=== PATIENT | female | born 1955 | race Hispanic/Latino ===

== ENCOUNTER 2017-10-13 22:38 | Emergency (ER) | payer BC ==
[2017-10-13 22:49] VITALS: TEMP 97.9
[2017-10-13] MEDS ORDERED: Atrop/Hyos/Scop/PhenoB Elixir PO STA (23:09)
[2017-10-13 23:16] LABS: BASO % 0.5 % (0.0-2.0); EOS % 0.4 % (0.0-4.0); HEMATOCRIT 42.7 % (34.0-47.0); LYMPH # 1.2 K/uL (1.0-4.3); LYMPH % 13.2 % (20.0-40.0); MEAN CELL VOLUME 88.6 fl (81.0-99.0); MEAN CORPUSCULAR HEMOGLOBIN 30.4 pg (27.0-31.0); MEAN CORPUSCULAR HGB CONC 34.4 g/dL (33.0-37.0); MEAN PLATELET VOLUME 8.8 fl (7.2-11.7); MONO # 0.1 K/uL (0.0-0.8); MONO % 0.8 % (0.0-10.0); NEUT # 7.9 K/uL (1.8-7.0); NEUT % 85.1 % (50.0-75.0); NRBC % 0.1 % (0.0-0.0); RED CELL DISTRIBUTION WIDTH 12.6 % (11.5-14.5); WHITE BLOOD COUNT 9.3 K/uL (4.8-10.8)
[2017-10-13 23:24] LABS: ALB/GLOB RATIO 1.5 (1.0-2.1); ALKALINE PHOSPHATASE 57 U/L (38-126); ALT/SGPT 36 U/L (9-52); AST/SGOT 35 U/L (14-36); BILIRUBIN,TOTAL 0.7 mg/dl (0.2-1.3); BLOOD UREA NITROGEN 21 mg/dl (7-17); CALCIUM 9.3 mg/dL (8.4-10.2); CARBON DIOXIDE 25 mmol/L (22-30); GFR AFRICAN-AMERICAN > 60; GLUCOSE,RANDOM 98 mg/dL (65-105); POTASSIUM 4.1 MMOL/L (3.6-5.0); SODIUM 143 mmol/l (132-148); TOTAL PROTEIN 7.6 G/DL (6.3-8.2)
[2017-10-13 23:27] LABS: PARTIAL THROMBOPLASTIN TIME 19.2 Seconds (25.6-37.1)
[2017-10-13] MEDS ORDERED: Sodium Chloride 0.9% 0 ML IV ONE (23:42)
[2017-10-13] MEDS ORDERED: Iohexol 300 100 ML IJ ONE (23:42)
--- NOTE | 2017-10-14 00:29 | ED PDOC ---
HPI: Abdomen Time Seen by Provider: 10/13/17 22:51 Chief Complaint (Nursing): Chest Pain Chief Complaint (Provider): Abdominal Pain History Per: Patient History/Exam Limitations: no limitations Onset/Duration Of Symptoms: Hrs (1 hour prior to arrival) Associated Symptoms: denies: Nausea, Vomiting Additional Complaint(s): Patient is a 62 y/o female with no past medical history who presents to the ED complaining of acute abdominal pain that radiates to her back since 1 hour prior to arrival. Patient reports she had a colonoscopy at 11:00 this morning ( 10/13/2017), and admits to drinking 2 sodas earlier. She is belching but denies any nausea or vomiting. PMD Dr David Cardiology Dr Ramirez Past Medical History Reviewed: Historical Data, Nursing Documentation, Vital Signs Vital Signs: Last Vital Signs Temp 97.9 F 10/13/17 22:46 Pulse 69 10/13/17 22:46 Resp 16 10/13/17 22:46 BP 171/76 H 10/13/17 22:46 Pulse Ox 100 10/14/17 00:42 - Medical History PMH: Back Problems - Surgical History Surgical History: No Surg Hx - Family History Family History: States: No Known Family Hx - Social History Current smoker - smoking cessation education provided: No Ex-Smoker (has not smoked in the last 12 months): No Alcohol: Social Drugs: Denies - Home Medications Home Medications: Ambulatory Orders Medication Instructions Recorded Atropine/Hyoscyamine [] 1 - 2 tab PO Q6 PRN #12 tab 10/14/17 - Allergies Allergies/Adverse Reactions: Allergies Allergy/AdvReac Type Severity Reaction Status Date / Time No Known Allergies Allergy Verified 10/13/17 22:45 Review of Systems ROS Statement: Except As Marked, All Systems Reviewed And Found Negative Gastrointestinal: Positive for: Abdominal Pain. Negative for: Nausea, Vomiting Physical Exam - Reviewed Nursing Documentation Reviewed: Yes Vital Signs Reviewed: Yes - Physical Exam Appears: Positive for: In Acute Distress (mild painful distress) Head Exam: Positive for: ATRAUMATIC, NORMOCEPHALIC Skin: Positive for: Normal Color, Warm, Dry Eye Exam: Positive for: Normal appearance, EOMI, PERRL Neck: Positive for: Normal, Painless ROM, Supple Cardiovascular/Chest: Positive for: Regular Rate, Rhythm. Negative for: Murmur Respiratory: Positive for: Normal Breath Sounds. Negative for: Respiratory Distress Gastrointestinal/Abdominal: Positive for: Soft, Tenderness (epigastric). Negative for: Guarding, Rebound Back: Positive for: Normal Inspection. Negative for: L CVA Tenderness, R CVA Tenderness, Vertebral Tenderness Extremity: Positive for: Normal ROM. Negative for: Pedal Edema, Deformity Neurologic/Psych: Positive for: Alert, Oriented (x3). Negative for: Motor/ Sensory Deficits - Laboratory Results Result Diagrams: 10/13/17 23:06 10/13/17 23:06 - ECG O2 Sat by Pulse Oximetry: 100 (RA) Pulse Ox Interpretation: Normal Medical Decision Making Medical Decision Making: Time: 23:02 Initial Impression: Initial Plan: --CT abdomen/pelvis IV W/O Contrast --EKG --Labs --PTT/PT --Chest X-Ray -- 5 ml PO --Urinalysis 00:04 --Lipase -Patient signed out by me to Donnie Carreon, pending CT abdomen/pelvis Scribe Attestation: Documented by Gabriel Finnegan, acting as a scribe for Nicky Antonio MD Provider Scribe Attestation: All medical record entries made by the Scribe were at my direction and personally dictated by me. I have reviewed the chart and agree that the record accurately reflects my personal performance of the history, physical exam, medical decision making, and the department course for this patient. I have also personally directed, reviewed, and agree with the discharge instructions and disposition. Disposition - Clinical Impression Clinical Impression: Abdominal pain - Patient ED Disposition Is Patient to be Admitted: Transfer of Care - Disposition Disposition: Transfer of Care Disposition Time: 00:04 Prescriptions: Atropine/Hyoscyamine [] 1 - 2 tab PO Q6 PRN #12 tab PRN Reason: abdominal pain/bloating Instructions: Gas and Bloating (ED), Abdominal Pain (ED) Forms: [employer] (Solomon Islander) Patient Signed Over To: Donnie Carreon
--- NOTE | 2017-10-14 00:37 | ED PDOC ---
HPI: Chest Pain Time Seen by Provider: 10/13/17 22:51 Chief Complaint (Nursing): Chest Pain Chief Complaint (Provider): Abdominal Pain History Per: Patient History/Exam Limitations: no limitations Onset/Duration Of Symptoms: Hrs (1 hour [facility]) Associated Symptoms: denies: Nausea Additional Complaint(s): Patient is a 62 y/o female with no past medical history who presents to the ED complaining of acute abdominal pain that radiates to her back since 1 hour prior to arrival. Patient reports she had a colonoscopy at 11:00 this morning ( 10/13/2017), and admits to drinking 2 sodas earlier. She is belching but denies any nausea or vomiting. PMD Dr David Cardiology Dr Ramirez Past Medical History Reviewed: Historical Data, Nursing Documentation, Vital Signs Vital Signs: Last Vital Signs Temp 97.9 F 10/14/17 01:01 Pulse 82 10/14/17 01:01 Resp 18 10/14/17 01:01 BP 156/82 H 10/14/17 01:01 Pulse Ox 100 10/14/17 03:17 - Medical History PMH: Back Problems - Surgical History Surgical History: No Surg Hx - Family History Family History: States: No Known Family Hx - Social History Current smoker - smoking cessation education provided: No Ex-Smoker (has not smoked in the last 12 months): No Alcohol: Social Drugs: Denies - Home Medications Home Medications: Ambulatory Orders Medication Instructions Recorded Atropine/Hyoscyamine [] 1 - 2 tab PO Q6 PRN #12 tab 10/14/17 - Allergies Allergies/Adverse Reactions: Allergies Allergy/AdvReac Type Severity Reaction Status Date / Time No Known Allergies Allergy Verified 10/13/17 22:45 Review of Systems ROS Statement: Except As Marked, All Systems Reviewed And Found Negative Gastrointestinal: Positive for: Abdominal Pain. Negative for: Nausea, Vomiting Physical Exam - Reviewed Nursing Documentation Reviewed: Yes Vital Signs Reviewed: Yes - Physical Exam Appears: Positive for: In Acute Distress (Mild painful distress) Head Exam: Positive for: ATRAUMATIC, NORMOCEPHALIC Skin: Positive for: Normal Color, Warm, Dry Eye Exam: Positive for: Normal appearance, EOMI, PERRL Neck: Positive for: Normal, Painless ROM, Supple Cardiovascular/Chest: Positive for: Regular Rate, Rhythm. Negative for: Murmur Respiratory: Positive for: Normal Breath Sounds. Negative for: Respiratory Distress Gastrointestinal/Abdominal: Positive for: Soft, Tenderness (epigastric). Negative for: Guarding, Rebound Back: Positive for: Normal Inspection. Negative for: L CVA Tenderness, R CVA Tenderness, Vertebral Tenderness Extremity: Positive for: Normal ROM. Negative for: Pedal Edema, Deformity Neurologic/Psych: Positive for: Alert, Oriented (x3). Negative for: Motor/ Sensory Deficits - Laboratory Results Result Diagrams: 10/13/17 23:06 10/13/17 23:06 - ECG O2 Sat by Pulse Oximetry: 100 (RA) Pulse Ox Interpretation: Normal Medical Decision Making Medical Decision Making: Time: 23:02 Initial Impression: Initial Plan: --CT abdomen/pelvis IV W/O Contrast --EKG --Labs --PTT/PT --Chest X-Ray -- 5 ml PO --Urinalysis 00:04 --Lipase -Patient signed out by me to Donnie Carreon, pending CT abdomen/pelvis Scribe Attestation: Documented by Gabriel Finnegan, acting as a scribe for Nicky Antonio MD Provider Scribe Attestation: All medical record entries made by the Scribe were at my direction and personally dictated by me. I have reviewed the chart and agree that the record accurately reflects my personal performance of the history, physical exam, medical decision making, and the department course for this patient. I have also personally directed, reviewed, and agree with the discharge instructions and disposition. Disposition - Clinical Impression Clinical Impression: Abdominal pain - Patient ED Disposition Is Patient to be Admitted: Transfer of Care - Disposition Disposition: Transfer of Care Disposition Time: 00:04 Condition: IMPROVED Prescriptions: Atropine/Hyoscyamine [] 1 - 2 tab PO Q6 PRN #12 tab PRN Reason: abdominal pain/bloating Instructions: Gas and Bloating (ED), Abdominal Pain (ED) Forms: [employer] (Nepalese) Patient Signed Over To: Donnie Carreon
--- NOTE | 2017-10-14 00:44 | ED PDOC ---
- Laboratory Results Result Diagrams: 10/13/17 23:06 10/13/17 23:06 - ECG O2 Sat by Pulse Oximetry: 100 (RA) Pulse Ox Interpretation: Normal Medical Decision Making Medical Decision Makin:04 -Patient signed out to me by Nicky Antonio -Pending CT abdomen/pelvis 00:15 CT abdomen/pelvis results FINDINGS: Lower thorax: The bilateral lung bases are clear. ABDOMEN: Liver: No acute findings Gallbladder and bile ducts: No acute finding. No calcified stones. No intra- extrahepatic biliary ductal dilation. Pancreas: Limited evaluation secondary to the lack of intravenous contrast. Spleen: No acute findings. Adrenals: No acute findings. Kidneys and ureters: No obstructing stones. No hydronephrosis. PELVIS: Bladder: No acute findings. Reproductive: The uterus is nodular in contour, suggesting fibroid disease. Appendix: The appendix is of normal-caliber (series 2, image 55). ABDOMEN and PELVIS: Stomach and bowel: No acute findings. Peritoneum: No acute findings. Lymph nodes: Limited evaluation without intravenous contrast. Vasculature: No aortic aneurysm. Bones: No acute fracture. IMPRESSION: Fibroid uterus. Normal appendix. 00:50 Patient reports marked improvement in symptoms and is stable for discharge Clinical Impression: Abdominal pain Condition: Improved Upon provider evaluation patient is medically stable, and requires no further treatment in the ED at this time. Patient will be discharged with Rx for . Counseling was provided and all questions were answered regarding diagnosis. There is agreement to discharge plan. Return if symptoms persist or worsen. Scribe Attestation: Documented by Gabriel Finnegan, acting as a scribe for Donnie Carreon MD Provider Scribe Attestation: All medical record entries made by the Scribe were at my direction and personally dictated by me. I have reviewed the chart and agree that the record accurately reflects my personal performance of the history, physical exam, medical decision making, and the department course for this patient. I have also personally directed, reviewed, and agree with the discharge instructions and disposition. Disposition - Clinical Impression Clinical Impression: Abdominal pain - POA Present On Arrival: None - Disposition Disposition: Routine/Home Disposition Time: 00:50 Condition: IMPROVED Prescriptions: Atropine/Hyoscyamine [] 1 - 2 tab PO Q6 PRN #12 tab PRN Reason: abdominal pain/bloating Instructions: Gas and Bloating (ED), Abdominal Pain (ED) Forms: [employer] (Croatian)
[2017-10-14 01:02] VITALS: BP 156/82; PULSE 82; RESP 18
[2017-10-14 03:18] VITALS: O2SAT 100
--- NOTE | 2017-10-14 11:26 | CT ---
PROCEDURE: CT Abdomen and Pelvis without intravenous contrast HISTORY: Epigastric pain, s/p colonoscopy COMPARISON: None. TECHNIQUE: CT scan of the abdomen and pelvis was performed without administration of intravenous contrast. Oral contrast was not administered. Coronal and sagittal reformatted images were obtained. Radiation dose: Total exam DLP = 658.42 mGy-cm. This CT exam was performed using one or more of the following dose reduction techniques: Automated exposure control, adjustment of the mA and/or kV according to patient size, and/or use of iterative reconstruction technique. FINDINGS: LOWER THORAX: The lung bases are clear. LIVER: Normal in size. No gross lesion or ductal dilatation. GALLBLADDER AND BILE DUCTS: No calcified gallstones. PANCREAS: Normal in size. No gross lesion or ductal dilatation. SPLEEN: Normal in size. ADRENALS: No discrete nodule. KIDNEYS AND URETERS: Normal in size without nephrolithiasis. No hydronephrosis. VASCULATURE: No aortic aneurysm. BOWEL: The proximal small bowel loops are normal in caliber. There is fecalization of distal small bowel contents. There is moderate amount of stool scattered throughout the colon. There is mild left colonic diverticulosis without CT evidence for acute diverticulitis. APPENDIX: Normal appendix. PERITONEUM: No free fluid. No free air. LYMPH NODES: No enlarged lymph nodes. BLADDER: Unremarkable. REPRODUCTIVE: There is a lobular uterus with subserosal fibroids in the fundus and to the left. BONES: No acute fracture. Within normal limits for the patient's age. OTHER FINDINGS: None. IMPRESSION: No acute abdominal or pelvic abnormality. Mild left colonic diverticulosis without CT evidence for acute diverticulitis. Constipation with fecal stasis in the distal small bowel. No bowel obstruction. Fibroid uterus. A preliminary report was provided by [employer].
--- NOTE | 2017-10-14 11:46 | CARD ---
APPROVED REPORT EKG Measurement Heart [id number] CA [id number] [id number] <Conclusion> Normal sinus rhythm Normal ECG
--- NOTE | 2017-10-14 13:33 | RAD ---
HISTORY: Epigastric pain COMPARISON: No prior. TECHNIQUE: Chest PA and lateral FINDINGS: LUNGS: No active pulmonary disease. PLEURA: No significant pleural effusion identified. No pneumothorax apparent. CARDIOVASCULAR: Normal. OSSEOUS STRUCTURES: No significant abnormalities. VISUALIZED UPPER ABDOMEN: Normal. OTHER FINDINGS: None. IMPRESSION: No active disease.
[2017-10-14 16:16] LABS: CHLORIDE 108 mmol/L (98-107)
== END 2017-10-14 01:02 | disposition home or self-care (01) ==
LOC: H.ER 22:38
DX: R10.9 Unspecified abdominal pain (principal); D25.9 Leiomyoma of uterus, unspecified; K57.30 Diverticulosis of large intestine without perforation or abscess without bleeding; K59.00 Constipation, unspecified

== ENCOUNTER 2018-10-05 17:57 | Inpatient (IN) | payer BC ==
--- NOTE | 2018-10-05 18:52 | ED PDOC ---
HPI: Trauma/Fall - HPI Time Seen by Provider: 10/05/18 18:21 Chief Complaint (Nursing): Trauma Chief Complaint (Provider): Trauma History Per: Patient History/Exam Limitations: no limitations Onset/Duration Of Symptoms: Hrs (x1) Injury Occurred (Timing): Today @ (1700) Additional Complaint(s): 63 y/o female presents to the ED for evaluation of lower back pain and right foot pain onset s/p fall earlier today. Patient reports around 17:00 today she fell off a step stool at height of approximately 2 steps injuring her back and foot. She reports the pain is a 10/10. She has a history of sciatica and states this pain feels similar. She denies head injury or loss of consciousness at the time of fall. She denies taking medication prior to arrival. PMD: Frankie Past Medical History Reviewed: Historical Data, Nursing Documentation, Vital Signs Vital Signs: Last Vital Signs Temp 98.3 F 10/05/18 18:03 Pulse 62 10/05/18 18:03 Resp 18 10/05/18 18:03 BP 133/85 10/05/18 18:03 Pulse Ox 100 10/05/18 18:03 - Medical History PMH: Back Problems - Surgical History Surgical History: No Surg Hx - Family History Family History: States: Unknown Family Hx - Home Medications Home Medications: Ambulatory Orders Medication Instructions Recorded RX: No Known Home Med 10/05/18 - Allergies Allergies/Adverse Reactions: Allergies Allergy/AdvReac Type Severity Reaction Status Date / Time No Known Allergies Allergy Verified 10/05/18 18:02 Review of Systems ROS Statement: Except As Marked, All Systems Reviewed And Found Negative Musculoskeletal: Positive for: Back Pain, Foot Pain Physical Exam - Reviewed Nursing Documentation Reviewed: Yes Vital Signs Reviewed: Yes - Physical Exam Comments: GENERAL APPEARANCE: Patient is awake, alert, oriented x 3, resting comfortably. SKIN: Warm, dry; (-) cyanosis. ENMT: Mucous membranes moist. NECK: Supple, FROM (-) tenderness, (-) stiffness CHEST AND RESPIRATORY: (-) rales, (-) rhonchi, (-) wheezes; breath sounds equal bilaterally. Respirations even and nonlabored. HEART AND CARDIOVASCULAR: (-) irregularity ABDOMEN AND GI: Soft; (-) tenderness BACK: Left paralumbar and sciatic notch tenderness. (-) midline tenderness. EXTREMITIES: (-) deformity, (-) calf tenderness. Ankle, Knee, and Hip Full ROM. RIGHT FOOT: Lateral aspect of the right mid foot: (+) ecchymosis, (+) edema. (+) tenderness to the mid-distal aspect of 3rd through 5th metatarsals. Toe and ankles nontender. (-) skin break, (-) erythema. Sensation intact throughout. NEURO AND PSYCH: Mental status as above. Intact sensation bilaterally; normal strength in extension of the knees, plantar and dorsiflexion of the toes. Speech: clear. (-) facial asymmetry (-) aphasia. - Laboratory Results Result Diagrams: 10/05/18 21:50 10/05/18 21:50 - ECG O2 Sat by Pulse Oximetry: 100 (RA) Pulse Ox Interpretation: Normal Medical Decision Making Medical Decision Making: Time: 18:30 Impression: acute on chronic back pain, right foot pain s/p fall Initial Plan: * Tylenol PO * Right Foot RAD * Re-evaluation 1914 Foot XR: (+) oblique mid shaft 5th metatarsal fracture Consult placed to podiatry. 1924 Case discussed with podiatry resident, Doretha Lanier, who is agreeable to evaluation in ED. 1999 Case endorsed to Maximo Beckett PA-C pending podiatry evaluation and further disposition. Scribe Attestation: Documented by Royce Parker acting as a scribe for Zofia Torre PA-C. Provider Scribe Attestation: All medical record entries made by the Scribe were at my direction and personally dictated by me. I have reviewed the chart and agree that the record accurately reflects my personal performance of the history, physical exam, medical decision making, and the department course for this patient. I have also personally directed, reviewed, and agree with the discharge instructions and disposition. Disposition - Clinical Impression Clinical Impression: Metatarsal bone fracture, Lower back pain, Fall (on) (from) other stairs and steps, initial encounter - Patient ED Disposition Is Patient to be Admitted: Transfer of Care (Maximo Beckett PA-C pending podiatry evaluation and further disposition.) Counseled Patient/Family Regarding: Studies Performed, Diagnosis - Disposition Disposition: Transfer of Care (Maximo Beckett PA-C pending podiatry evaluation and further disposition.) Disposition Time: 20:00 Condition: FAIR - POA Present On Arrival: Falls Or Trauma
--- NOTE | 2018-10-05 21:55 | ED PDOC ---
- Laboratory Results Result Diagrams: 10/05/18 21:50 10/05/18 21:50 - ECG ECG: Positive for: Viewed By Me (reviewed by ED attending) ECG Rhythm: Positive for: Sinus Rhythm O2 Sat by Pulse Oximetry: 100 (RA) - Radiology X-Ray: Viewed By Me X-Ray Interpretation: No Acute Disease - Progress ED Course And Treament: Case endorsed to lead technical writer from [facility]IM[facility] pending podiatry eval Patient evaluated by podiatry resident Dr. Lanier; will admit for OR in am as per Dr. Duran labs, ekg, chest xray ordered Case discussed with Dr. Almazan, Hospitalist on-call, for admission Disposition - Clinical Impression Clinical Impression: Metatarsal bone fracture, Lower back pain, Fall (on) (from) other stairs and steps, initial encounter - POA Present On Arrival: Falls Or Trauma - Disposition Disposition: Admitted as In-Patient Disposition Time: 22:15 Condition: FAIR
[2018-10-05 22:00] LABS: BASO # 0.1 K/uL (0.0-0.2); BASO % 0.5 % (0.0-2.0); EOS % 0.1 % (0.0-4.0); HEMOGLOBIN 14.1 g/dL (12.0-16.0); LYMPH # 1.2 K/uL (1.0-4.3); LYMPH % 10.3 % (20.0-40.0); MEAN CORPUSCULAR HEMOGLOBIN 30.6 pg (27.0-31.0); MEAN PLATELET VOLUME 8.1 fl (7.2-11.7); MONO # 0.5 K/uL (0.0-0.8); MONO % 4.4 % (0.0-10.0); NEUT # 9.8 K/uL (1.8-7.0); NEUT % 84.7 % (50.0-75.0); RBC 4.63 Mil/uL (3.80-5.20); RED CELL DISTRIBUTION WIDTH 12.8 % (11.5-14.5); WHITE BLOOD COUNT 11.5 K/uL (4.8-10.8)
[2018-10-05 22:05] LABS: PROTHROMBIN TIME 11.3 Seconds (9.8-13.1)
[2018-10-05 22:10] LABS: ALB/GLOB RATIO 1.5 (1.0-2.1); ALBUMIN 4.6 g/dL (3.5-5.0); ALT/SGPT 32 U/L (9-52); AST/SGOT 34 U/L (14-36); BLOOD UREA NITROGEN 15 mg/dl (7-17); CALCIUM 9.6 mg/dL (8.4-10.2); GFR NON-AFRICAN AMERICAN > 60
--- NOTE | 2018-10-05 22:11 | CP.PCM.CON ---
History of Present Illness - History of Present Illness History of Present Illness: podiatry consult note for Dr. Duran, 63 y/o female with no significant past medical history presents to the ED for evaluation of right foot pain onset s/p fall earlier today. Patient states she fell off a step stool around 5 pm today, twisting her right foot. She states the pain has gotten worse over time. States had tried ambulating on it after the injury. Was transported to the ED via ambulance. Denies taking medication prior to ED. Denies f/n/v/sob. PMD: Ali Medication: none Allergies: none Social: drinks wine daily with dinner, denies smoking cigarettes or using recreational drugs. Past Patient History - Past Social History Smoking Status: Never Smoked - PSYCHIATRIC Hx Substance Use: No - SURGICAL HISTORY Hx Surgeries: Yes - ANESTHESIA Hx Anesthesia: Yes Hx Anesthesia Reactions: No Meds Allergies/Adverse Reactions: Allergies Allergy/AdvReac Type Severity Reaction Status Date / Time No Known Allergies Allergy Verified 10/05/18 18:02 Physical Exam - Constitutional Appears: Well, Non-toxic - Head Exam Head Exam: ATRAUMATIC - Extremities Exam Additional comments: RIght lower extremity exam: Vascular: DP/PT 2/4 right, CFT <3 secs x 5, Tg warm to cool, erythema noted on the lateral aspect of the forefoot, edema noted on the lateral aspect of the forefoot derm: no open lesions, erythema on the lateral aspect of the fifth met head, edema to the lateral aspect of the forefoot, no clinical signs of infection neuro: protective sensation grossly intact via ipswich 4/4 ortho: pain with palpation over the fifth metatarsal, pain with ROM of the fifth metatarsal, no pain with inversion/eversion of STJ and no pain with PF/DF of the ankle joint. - Back Exam Back exam: NORMAL INSPECTION - Neurological Exam Neurological exam: Alert, Normal Gait, Oriented x3 Results - Vital Signs Recent Vital Signs: Last Vital Signs Temp 98.3 F 10/05/18 18:03 Pulse 62 10/05/18 18:03 Resp 18 10/05/18 18:03 BP 133/85 10/05/18 18:03 Pulse Ox 100 10/05/18 21:55 - Labs Result Diagrams: 10/05/18 21:50 Labs: Laboratory Results - last 24 hr 10/05/18 10/05/18 21:50 21:50 WBC 11.5 H RBC 4.63 Hgb 14.1 Hct 41.6 MCV 90.0 MCH 30.6 MCHC 34.0 RDW 12.8 Plt Count 174 MPV 8.1 Neut % (Auto) 84.7 H Lymph % (Auto) 10.3 L [place] % (Auto) 4.4 Eos % (Auto) 0.1 Baso % (Auto) 0.5 Neut # (Auto) 9.8 H Lymph # (Auto) 1.2 [place] # (Auto) 0.5 Eos # (Auto) 0.0 Baso # (Auto) 0.1 PT 11.3 INR 1.0 Assessment & Plan - Assessment and Plan (Free Text) Assessment: 63 yo female with no past medical history seen in the ED for right fifth metata rsal fracture with displacement and angulation. Plan: Patient seen and evaluated Chart, labs and vitals reviewed; WBC 11.5 afebrile History and plan discussed in detail with the attending, Dr Duran Patient educated on possible conservative and surgical treatment Patient opts for the surgical treatment after careful explanation of risks, benefits and alternative Patients right lower extremity dressed with soto compression and posterior splint continue elevating and icing the RLE continue pain medications as needed patient to be admitted under the hospitalist team; please provide medical clearance patient scheduled for right fifth met ORIF tomorrow physical therapy consult ordered; please crutch train patient. thank you for the consult.
[2018-10-05] MEDS ORDERED: Oxycodone/Acetaminophen 5/325 mg Tab PO PRN (22:51)
[2018-10-05] MEDS: Sodium Chloride 0.9% 1,000 ML IV SCH (23:06)
--- NOTE | 2018-10-05 23:29 | CP.PCM.HP ---
History of Present Illness - History of Present Illness History of Present Illness: This is 63 y/o female with no PMH admitted to [facility] for evaluation and treatment of Right fifth metatarsal fracture. As per patient, she was normal state of her health, working at home around 5pm when she fell down from step stool and twisted her right foot. Patient denies any head trauma, LOC, just reports falling on right foot followed back her back. Patient reports she ambulated after but pain got worse which prompted her to visit ER. Fifth metatarsal pain is well controlled after tylenol, patient doesnt want any pain medications. Patient usually walks >10 blocks with out any difficulty. Denies any chest pain, SOB, dizziness, blurred vision, palpitations, abdominal pain, urinary symptoms or weakness. Patient reports chronic sciatic back pain. PMD: Dr. David PMH: Denies PSH: Breast surgery Medication: Denies Allergies: none FH: Father with RI in his 70s, Mother of old age SH: drinks wine daily with dinner, denies smoking cigarettes or using recreational drugs. ROS: As per HPI ER course: VS: Afebrile, stable CBC: WBC 11.5 CMP: WNL Coag CXR: f/u official report, no acute changes EKG: NSR R foot xray: right fifth metatarsal oblique fracture noted of the distal 1/3rd of the shaft with angulation and displacement S/p Tylenol Present on Admission - Present on Admission Any Indicators Present on Admission: No Past Patient History - Past Social History Smoking Status: Never Smoked - PSYCHIATRIC Hx Substance Use: No - SURGICAL HISTORY Hx Surgeries: Yes - ANESTHESIA Hx Anesthesia: Yes Hx Anesthesia Reactions: No Meds Allergies/Adverse Reactions: Allergies Allergy/AdvReac Type Severity Reaction Status Date / Time No Known Allergies Allergy Verified 10/05/18 18:02 Physical Exam - Constitutional Appears: No Acute Distress - Head Exam Head Exam: NORMAL INSPECTION - Eye Exam Eye Exam: EOMI, Normal appearance, PERRL Pupil Exam: NORMAL ACCOMODATION - ENT Exam ENT Exam: Mucous Membranes Moist - Neck Exam Neck exam: Positive for: Normal Inspection - Respiratory Exam Respiratory Exam: Clear to Auscultation Bilateral, NORMAL BREATHING PATTERN. absent: Rhonchi, Wheezes - Cardiovascular Exam Cardiovascular Exam: REGULAR RHYTHM, +S1, +S2 - GI/Abdominal Exam GI & Abdominal Exam: Normal Bowel Sounds, Soft. absent: Distended, Organomegaly, Tenderness - Extremities Exam Extremities exam: Positive for: normal capillary refill, normal inspection, pedal pulses present. Negative for: pedal edema, tenderness Additional comments: RLE: 5th digit pain on palpation, Intact ROM with pain , no swelling or erythema - Back Exam Back exam: NORMAL INSPECTION. absent: CVA tenderness (L), CVA tenderness (R), muscle spasm, paraspinal tenderness, rash noted, tenderness, vertebral tender ness - Neurological Exam Neurological exam: Alert, CN II-XII Intact, Oriented x3 - Psychiatric Exam Psychiatric exam: Normal Affect - Skin Skin Exam: Dry, Intact, Normal Color, Warm Results - Vital Signs Recent Vital Signs: Last Vital Signs Temp 98.3 F 10/05/18 18:03 Pulse 62 10/05/18 18:03 Resp 18 10/05/18 18:03 BP 133/85 10/05/18 18:03 Pulse Ox 100 10/05/18 23:11 - Labs Result Diagrams: 10/05/18 21:50 10/05/18 21:50 Labs: Laboratory Results - last 24 hr 10/05/18 10/05/18 10/05/18 21:12 21:50 21:50 WBC 11.5 H RBC 4.63 Hgb 14.1 Hct 41.6 MCV 90.0 MCH 30.6 MCHC 34.0 RDW 12.8 Plt Count 174 MPV 8.1 Neut % (Auto) 84.7 H Lymph % (Auto) 10.3 L Iron % (Auto) 4.4 Eos % (Auto) 0.1 Baso % (Auto) 0.5 Neut # (Auto) 9.8 H Lymph # (Auto) 1.2 Iron # (Auto) 0.5 Eos # (Auto) 0.0 Baso # (Auto) 0.1 PT INR APTT Sodium 139 Potassium 4.3 Chloride 105 Carbon Dioxide 26 Anion Gap 12 BUN 15 Creatinine 0.7 Est GFR ( Amer) > 60 Est GFR (Non-Af Amer) > 60 Random Glucose 117 H Calcium 9.6 Total Bilirubin 0.8 AST 34 ALT 32 Alkaline Phosphatase 52 Total Protein 7.7 Albumin 4.6 Globulin 3.1 Albumin/Globulin Ratio 1.5 Blood Type A POSITIVE Antibody Screen Negative BBK History Checked No verified bt 10/05/18 21:50 WBC RBC Hgb Hct MCV MCH MCHC RDW Plt Count MPV Neut % (Auto) Lymph % (Auto) Iron % (Auto) Eos % (Auto) Baso % (Auto) Neut # (Auto) Lymph # (Auto) Iron # (Auto) Eos # (Auto) Baso # (Auto) PT 11.3 INR 1.0 APTT 28.0 Sodium Potassium Chloride Carbon Dioxide Anion Gap BUN Creatinine Est GFR ( Amer) Est GFR (Non-Af Amer) Random Glucose Calcium Total Bilirubin AST ALT Alkaline Phosphatase Total Protein Albumin Globulin Albumin/Globulin Ratio Blood Type Antibody Screen BBK History Checked Assessment & Plan - Assessment and Plan (Free Text) Assessment: A/P: 63 y/o female with no PMH admitted to [facility] for evaluation and treatment of Right fifth metatarsal fracture. Right fifth metatarsal fracture, s/p fall - x-rays reviewed: right fifth metatarsal oblique fracture noted of the distal 1/3rd of the shaft with angulation and displacement - Consult ortho, Dr. Duran, follow up recommendations - CBC, CMP, Coag reviewed, f/u UA - CXR: f/u official report, no acute changes - EKG: NSR - Type and Screen - NPO past midnight for possible surgical intervention by ortho - C/w IVF - C/w pain control - Cardiac Risk Index in Noncardiac Surgery calculation: Class I 1% complication - Medically optimized for low risk surgery Chronic Lower back pain - Pain control - Management as out patient DVT PPX - SCD
[2018-10-06] MEDS: Lidocaine 5% Patch TD SCH ×2 (01:02→09:55)
--- NOTE | 2018-10-06 08:44 | CARD ---
APPROVED REPORT Date of service: 10/05/2018 EKG Measurement Heart [id number] ID [id number] <Conclusion> Normal sinus rhythm Normal ECG
[2018-10-06] MEDS: Sodium Chloride 0.9% 1,000 ML IV SCH (09:56)
[2018-10-06] MEDS ORDERED: Bupivacaine 0.5% Inj(30mL) ONE ×2 (12:31→14:47)
[2018-10-06] MEDS ORDERED: Propofol 10 mg/ml Inj (20 ML) ONE (12:36)
[2018-10-06] MEDS ORDERED: Lidocaine 4% (Laryng-O-Jet) Kit MM ONE (12:37)
[2018-10-06] MEDS ORDERED: Rocuronium 10 mg/ml (5 ml) ONE (12:37)
[2018-10-06] MEDS ORDERED: Succinylcholine 200 mg/10 ml Inj IV ONE (12:37)
[2018-10-06] MEDS ORDERED: Dexamethasone 4 mg/1 ml ONE (12:39)
[2018-10-06] MEDS ORDERED: Phenylephrine 10 mg/ml Inj ONE (12:41)
[2018-10-06] MEDS ORDERED: EPINEPHrine 1 mg/ml (1:1000) Inj ONE (12:51)
[2018-10-06] MEDS ORDERED: Lidocaine 1% Inj (20ml) ONE (14:46)
[2018-10-06] MEDS ORDERED: MethylPREDNISolone Depo 40 mg/ml Inj ONE (14:46)
[2018-10-06] MEDS ORDERED: Bacitracin Ointment 30 GM TUBE ONE (14:47)
[2018-10-06] MEDS ORDERED: ceFAZolin IV 1 gm in Dextrose 1 GM/50 ML BAG IVPB ONE (14:47)
[2018-10-06] MEDS ORDERED: Lactated Ringer's 1,000 ML IV ONE ×2 (14:48→19:00)
[2018-10-06] MEDS ORDERED: Midazolam 2 MG/2 ML VIAL ONE (14:50)
[2018-10-06] MEDS ORDERED: Ropivacaine 0.5% 30ML IV ONE (15:55)
--- NOTE | 2018-10-06 16:03 | PCM.ANESB2 ---
Popliteal Nerve Block - Popliteal Nerve Block Date of Procedure: 10/06/18 Anesthesiologist: Gilma Pre-Procedure Diagnosis: Right fifth metatarsal fracture Post-Procedure Diagnosis: Same Procedure Performed: Popliteal Nerve Block Right - Procedure Popliteal Nerve Block: This procedure was explained to the patient that it is for post-operative pain management. Consent was obtained after a thorough discussion with the patient regarding the benefits and possible complications of local anesthetic block of the sciatic nerve at the popliteal level. The patient was brought to the operating room and standard monitors are applied. Time-out was held with the circulating nurse to confirm the correct surgery and the appropriate block. Under general anesthesia, patient's operative leg was gently raised and supported and the groove in between the biceps femoris and vastus lateralis muscles was carefully palpated. The skin approximately 8cm above the popliteal crease was then marked. The ultrasound transducer was then applied to the posterior thigh approximately 8cm above the popliteal crease in the transverse plane and the sciatic nerve before its division was visualized lateral to the popliteal artery and in between the bicep femoris and semimembranosus/semitendinosus muscles. After identification, the lateral portion of the thigh was prepped with Chloraprep. At this point, a # 21 gauge Stimuplex insulated 4 inch needle was inserted into pre-marked area and advanced in a perpendicular direction. The needle was inserted above the ultrasound transducer in-plane towards the sciatic nerve in a [id number] direction. Needle advancement was performed carefully under direct ultrasound visualization. Nerve stimulator was used and dorsiflexion of the ___right__ foot was elicited at a current of __0.4___ MA. After repeated negative aspiration, __2___cc of __0.5___ % ___bupivacaine with 1:200,000 epinephrine was injected and this was flowed with ___23___ cc of _0.5 % __bupivacaine with 1:200,000 epinephrine . Under ultrasound guidance the local anesthetics were observed surrounding sciatic nerve . The needle was removed intact. The patient tolerated the popliteal nerve block well with stable vital signs and was subsequently prepared for the surgery.
--- NOTE | 2018-10-06 16:11 | RAD ---
Date of service: 10/05/2018 HISTORY: admit COMPARISON: Comparison chest dated 10/13/2017. FINDINGS: LUNGS: No active pulmonary disease. PLEURA: No significant pleural effusion identified, no pneumothorax apparent. CARDIOVASCULAR: No significant aortic atherosclerotic calcification present. Normal cardiac size. No pulmonary vascular congestion. OSSEOUS STRUCTURES: No significant abnormalities. VISUALIZED UPPER ABDOMEN: Normal. OTHER FINDINGS: None. IMPRESSION: No active disease.
--- NOTE | 2018-10-06 16:14 | RAD ---
Date of service: 10/05/2018 PROCEDURE: Right Foot Radiographs. HISTORY: s/p fall, r/o 5th metatarsal fracture COMPARISON: None. FINDINGS: BONES: There is a diagonal/oblique fracture traversing the mid aspect of the right 5th metatarsal with slight medial displacement of the distal fracture fragment. Prominent plantar surface enthesophyte noted JOINTS: Normal. SOFT TISSUES: Normal. OTHER FINDINGS: None. IMPRESSION: Diagonal/oblique fracture traversing the mid aspect of the right 5th metatarsal with slight medial displacement of the distal fracture fragment. .
[2018-10-06] MEDS ORDERED: Neostigmine 1:1000 (1 mg/ml) Inj ONE (16:32)
[2018-10-06] MEDS ORDERED: Lactated Ringer's 500 ML IV ONE (16:45)
--- NOTE | 2018-10-06 16:46 | PCM.SURG1 ---
Surgeon's Initial Post Op Note - Surgeon's Notes Surgeon: Roger Director Of Business Applications: 1st assist Brandon/ 2nd assist JADE Maya Type of Anesthesia: General Endo, Block Regional Anesthesia Administered By: Dr geiger/DR Turner Pre-Operative Diagnosis: displaced/ comminuted 5th metatarsal fx Operative Findings: asd above, with poort bone qulaity and intraaop evdience of comminution Post-Operative Diagnosis: as above Operation Performed: ORIF displaced/comminuted 5th metatarsal fx. allograft bone graft. applx short leg splint. psoitoning of fluoro/interpetation of video images Specimen/Specimens Removed: bone/cartilage Estimated Blood Loss: EBL {In ML}: 10 Blood Products Given: N/A Drains Used: No Drains Post-Op Condition: Good Date of Surgery/Procedure: 10/06/18 Time of Surgery/Procedure: 15:40 (time in room/anaesthesia indcution time: 1448)
[2018-10-06] MEDS ORDERED: Dexamethasone 4 mg/1 ml IVP PRN (16:59)
[2018-10-06] MEDS ORDERED: HYDROmorphone 0.5 mg/0.5 ml ISec IVP PRN (16:59)
[2018-10-06] MEDS ORDERED: Lactated Ringer's 1,000 ML IV SCH (17:00)
[2018-10-06] MEDS ORDERED: Oxycodone/Acetaminophen 5/325 mg Tab PO PRN ×2 (17:04)
[2018-10-06] MEDS ORDERED: BSS 15 ML SOL IR ONE ×2 (17:05→17:25)
[2018-10-06] MEDS ORDERED: STERILE IRRIGATING SOLUTION 15 ML IR ONE (17:24)
[2018-10-06] MEDS: Lubricant Eye Drops UD OU SCH (21:29)
[2018-10-07] MEDS: Lubricant Eye Drops UD OU SCH ×3 (03:30→10:05)
--- NOTE | 2018-10-07 05:51 | CP.PCM.PCO ---
Assessment/Plan - Assessment and Plan (Free Text) Assessment: 63 y/o F seen and examined POD#0 s/p ORIF displaced/comminuted 5th metatarsal fx. Patient denies any pain, nausea, vomiting, dizziness, SOB, chest pain, abdominal pain or weakness. Patient is tolerating PO intake. C/o mild left eye burning, denies any vision changes. O: VS: reviewed PE: Pulm: CTABL, Cardio: RRR, able to putty remover her LEs, sensory and motor intact A/P: 63 y/o F, POD#0 s/p ORIF displaced/comminuted 5th metatarsal fracture. - Continue with pain management - Zofran PRN - C/w Incentive Spirometer - PT/OT - Continue weigh bearing status as ortho - Encourage PO intake --- Carol Sparrow, PGY-II
[2018-10-07 07:57] VITALS: PULSE 62; RESP 20; TEMP 97.7; O2SAT 97
[2018-10-07 08:28] VITALS: BP 109/66
[2018-10-07] MEDS ORDERED: Acetaminophen-Codeine 300/30 mg Tab PO PRN (10:04)
[2018-10-07] MEDS: Lidocaine 5% Patch TD SCH (10:06)
--- NOTE | 2018-10-07 10:08 | CP.PCM.PN ---
Subjective - Date & Time of Evaluation Date of Evaluation: 10/07/18 Time of Evaluation: 10:05 - Subjective Subjective: Patient states she has no pain in her right foot and that it is still numb. She is complaining of aches and pains from fall. Denies CP/SOB/dizziness/n/v. She says she doesn't tolerate pain medication well, and does not want to take perc ocet. Suggested tylenol with codeine, patient agrees to this. Objective - Vital Signs/Intake and Output Vital Signs (last 24 hours): Temp Pulse Resp BP Pulse Ox 97.7 F 62 20 109/66 97 10/07/18 08:28 10/07/18 08:28 10/07/18 08:28 10/07/18 08:28 10/07/18 08:28 - Medications Medications: Current Medications Acetaminophen (Tylenol 325mg Tab) 650 mg PO Q6 PRN PRN Reason: Pain, Mild (1-3) Last Admin: 10/07/18 03:28 Dose: 650 mg Acetaminophen (Tylenol 325mg Tab) 650 mg PO Q4 PRN PRN Reason: Fever 101 degrees fahrenheit Acetaminophen/Codeine Phosphate (Tylenol/Codeine 300 Mg/30 Mg) 1 tab PO Q4 PRN PRN Reason: Pain, moderate (4-7) Artificial Tears (Refresh Opth Soln) 0.3 ml OU Q4H [facility] Last Admin: 10/07/18 03:30 Dose: 1 ml Sodium Chloride (Sodium Chloride 0.9%) 1,000 mls @ 125 mls/hr IV .Q8H [facility] Last Admin: 10/06/18 09:56 Dose: 125 mls/hr Lidocaine (Lidoderm) 1 ea TD Q12 [facility] Last Admin: 10/06/18 09:55 Dose: 1 ea Morphine Sulfate (Morphine) 2 mg IVP Q4 PRN PRN Reason: Pain, severe (8-10) Ondansetron HCl (Zofran Inj) 4 mg IVP Q6 PRN PRN Reason: Nausea/Vomiting Ondansetron HCl (Zofran Inj) 4 mg IVP ONCE PRN PRN Reason: Nausea/Vomiting Oxycodone/Acetaminophen (Percocet 5/325 Mg Tab) 1 tab PO Q4 PRN PRN Reason: Pain, moderate (4-7) Stop: 10/08/18 22:52 - Labs Labs: 10/05/18 21:50 10/05/18 21:50 PT 11.3 Seconds (9.8-13.1) 10/05/18 21:50 INR 1.0 10/05/18 21:50 APTT 28.0 Seconds (25.6-37.1) 10/05/18 21:50 - Extremities Exam Additional comments: RLE: no active ROM of toes, she says she is starting to feel a little bit during palpation. +DP pulse, cap refill < 2 sec Assessment and Plan (1) Displaced fracture of fifth metatarsal bone, right foot, initial encounter for closed fracture Assessment & Plan: POD#1 s/p ORIF right 5th MT NWB PT/OT patient with crutches and is getting scooter d/c home today elevate aspirin PO BID 81mg for VTE proph until follow up in office d/w Dr. Duran, agrees with above Status: Acute
--- NOTE | 2018-10-07 11:40 | RAD ---
Date of service: 10/06/2018 PROCEDURE: Right Foot Radiographs. HISTORY: s/p R foot 5th metatarsal ORIF COMPARISON: 10/05/2018 preoperative study. FINDINGS: BONES: Postop findings related to known 5th metatarsal fracture. No evidence of orthopedic hardware failure. Major fracture fragments are anatomically aligned. JOINTS: No acute findings SOFT TISSUES: Normal. OTHER FINDINGS: None. IMPRESSION: Satisfactory postoperative status.
--- NOTE | 2018-10-07 12:12 | CP.PCM.DIS ---
Provider - Provider Date of Admission: 10/05/18 21:58 Attending physician: Michelle Almazan MD Consults: Orthopedics- Dr. Duran Time Spent in preparation of Discharge (in minutes): 30 Diagnosis - Discharge Diagnosis (1) Displaced fracture of fifth metatarsal bone, right foot, initial encounter for closed fracture Status: Acute Hospital Course - Lab Results Lab Results: Most Recent Lab Values WBC 11.5 K/uL (4.8-10.8) H 10/05/18 21:50 RBC 4.63 Mil/uL (3.80-5.20) 10/05/18 21:50 Hgb 14.1 g/dL (12.0-16.0) 10/05/18 21:50 Hct 41.6 % (34.0-47.0) 10/05/18 21:50 MCV 90.0 fl (81.0-99.0) 10/05/18 21:50 MCH 30.6 pg (27.0-31.0) 10/05/18 21:50 MCHC 34.0 g/dL (33.0-37.0) 10/05/18 21:50 RDW 12.8 % (11.5-14.5) 10/05/18 21:50 Plt Count 174 K/uL (130-400) 10/05/18 21:50 MPV 8.1 fl (7.2-11.7) 10/05/18 21:50 Neut % (Auto) 84.7 % (50.0-75.0) H 10/05/18 21:50 Lymph % (Auto) 10.3 % (20.0-40.0) L 10/05/18 21:50 Perry % (Auto) 4.4 % (0.0-10.0) 10/05/18 21:50 Eos % (Auto) 0.1 % (0.0-4.0) 10/05/18 21:50 Baso % (Auto) 0.5 % (0.0-2.0) 10/05/18 21:50 Neut # (Auto) 9.8 K/uL (1.8-7.0) H 10/05/18 21:50 Lymph # (Auto) 1.2 K/uL (1.0-4.3) 10/05/18 21:50 Perry # (Auto) 0.5 K/uL (0.0-0.8) 10/05/18 21:50 Eos # (Auto) 0.0 K/uL (0.0-0.7) 10/05/18 21:50 Baso # (Auto) 0.1 K/uL (0.0-0.2) 10/05/18 21:50 PT 11.3 Seconds (9.8-13.1) 10/05/18 21:50 INR 1.0 10/05/18 21:50 APTT 28.0 Seconds (25.6-37.1) 10/05/18 21:50 Sodium 139 mmol/l (132-148) 10/05/18 21:50 Potassium 4.3 MMOL/L (3.6-5.0) 10/05/18 21:50 Chloride 105 mmol/L (98-107) 10/05/18 21:50 Carbon Dioxide 26 mmol/L (22-30) 10/05/18 21:50 Anion Gap 12 (10-20) 10/05/18 21:50 BUN 15 mg/dl (7-17) 10/05/18 21:50 Creatinine 0.7 mg/dl (0.7-1.2) 10/05/18 21:50 Est GFR ( Amer) > 60 10/05/18 21:50 Est GFR (Non-Af Amer) > 60 10/05/18 21:50 Random Glucose 117 mg/dL (65-105) H 10/05/18 21:50 Calcium 9.6 mg/dL (8.4-10.2) 10/05/18 21:50 Total Bilirubin 0.8 mg/dl (0.2-1.3) 10/05/18 21:50 AST 34 U/L (14-36) 10/05/18 21:50 ALT 32 U/L (9-52) 10/05/18 21:50 Alkaline Phosphatase 52 U/L (38-126) 10/05/18 21:50 Total Protein 7.7 G/DL (6.3-8.2) 10/05/18 21:50 Albumin 4.6 g/dL (3.5-5.0) 10/05/18 21:50 Globulin 3.1 gm/dL (2.2-3.9) 10/05/18 21:50 Albumin/Globulin Ratio 1.5 (1.0-2.1) 10/05/18 21:50 Blood Type A POSITIVE 10/05/18 21:12 Antibody Screen Negative 10/05/18 21:12 BBK History Checked No verified bt 10/05/18 21:12 - Hospital Course Hospital Course: 63 yo female with no PMH who was admitted to [facility] for eval and treatment of right fifth metatarsal fracture. Pt was doing chores around her home when she fell off a step stool and twisted her right foot; when she felt the pain and saw swelling, she came to ED. She denied hitting her head during the fall or any LOC. Xray showed right fifth metatarsal fracture. Orthopedic surgeon Dr. Duarn was consulted, and she underwent ORIF of displaced/comminuted 5th metatarsal fracture in the OR by ortho team yesterday. Today she is doing well, has ambulated with crutches and has been cleared by physical therapy. Patient instructed to follow up with PMD in 1 week and with ortho as per ortho instructions. Pain control script written by ortho team. Discharge Exam - Head Exam Head Exam: NORMAL INSPECTION, NORMOCEPHALIC - Neck Exam Neck exam: Full Rom - Respiratory Exam Respiratory Exam: NORMAL BREATHING PATTERN, UNREMARKABLE - Cardiovascular Exam Cardiovascular Exam: REGULAR RHYTHM - Extremities Exam Additional comments: RLE in cast; sensation intact, normal color, no cyanosis - Neurological Exam Neurological exam: Alert, Oriented x3 - Skin Skin Exam: Dry, Warm Discharge Plan - Discharge Medications Prescriptions: Acetaminophen with Codeine [Tylenol with Codeine #3 Tablet] 1 each PO Q4H PRN #20 tablet PRN Reason: Pain, Moderate (4-7) - Follow Up Plan Condition: FAIR Disposition: HOME/ ROUTINE Instructions: Low Back Pain (DC), Foot Fracture (DC), Open Reduction and Internal Fixation Surgery (DC), Nerve Blocks Additional Instructions: follow up with primary MD in 1 week and follow up with Dr Duran in 1 week, or as directed by ortho team. Referrals: Adalid Duran III, MD [Staff Provider] -
--- NOTE | 2018-10-09 19:22 | OP ---
PROCEDURE DATE: 10/06/2018 PREOPERATIVE DIAGNOSIS: Displaced comminuted fracture of fifth metatarsal shaft extending to the fifth metatarsal neck. POSTOPERATIVE DIAGNOSIS: Displaced comminuted fifth metatarsal fracture with extremely poor bone quality. OPERATIVE FINDINGS: Displaced comminuted fifth metatarsal fracture with again poor bone quality and intraoperative evidence of comminution. SURGEON: Adalid Duran MD SUPERVISOR BINDERY: , second year podiatry resident. SECOND LINDERMAN OPERATOR: Lakesha Raphael, certified registered nursing assistant [employer] delivery. OPERATIVE PROCEDURES: 1. Open reduction internal fixation of displaced comminuted fifth metatarsal fracture of the shaft and neck. 2. Fifth metatarsophalangeal joint arthrotomy and capsulotomy of the fifth metatarsophalangeal joint. 3. Allograft and autograft bone graft. 4. Application of short leg splint. 5. Positioning of fluoroscope, interpretation of video images. SPECIMENS REMOVED: Bone and healing callus. BLOOD LOSS: Approximately 10 mL. BLOOD PRODUCTS: No blood products given. POSTOPERATIVE CONDITION: Stable. TIME OF PROCEDURE: Incision time 15:40. Time in the room and anesthesia induction time 14:48. OPERATIVE INDICATIONS: Suzan Godfrey is a 63-year-old woman who sustained a fall at home and presented to the emergency room at [facility]. The patient was evaluated by the resident and by the emergency room team. X-rays were accomplished, which revealed a displaced comminuted fifth metatarsal shaft and neck fracture. The patient was admitted, medical stabilization was accomplished. Pros, cons, risks and benefits of various surgical approaches were discussed including benign neglect, closed reduction, cast application, open reduction and internal fixation discussed at length. The possibility of mechanical failure, infection, thromboembolic disease, possibility of secondary or tertiary surgery was discussed. The patient can no longer withstand the discomfort and wished the surgery be accomplished. She favors this operative approach over closed reduction or benign neglect. OPERATIVE PROCEDURE: After having obtained informed consent in the above fashion, after having identified side, site and procedure in a critical pause/time-out after the satisfactory induction of general endotracheal anesthesia and regional block by Dr. Marion and Dr. Jaspal Dillard, the patient identified as Suzan Godfrey in the supine position with all bony prominences well padded. The left lower extremity was prepped and free draped in the usual fashion for lower extremity surgery. Under the surgeon's direction, the fluoroscope was positioned, video images were generated and therapeutic decisions were made therefrom. The operative exercise was found to be challenging because of the quality of the bone and the comminution which was especially realized at surgery. An incision was described at the junction of the more mobile dorsal skin of the foot on the lateral aspect and the glabrous skin. The skin incision was carried down through the skin, subcutaneous tissue. Hemostasis was controlled with electrocautery. Stay sutures were applied so as not to compromise the skin edges. The sural nerve branch was identified and that was retracted dorsally and carefully to protect the sural nerve branch from harm. Dissection was carried out from the distal aspect of the metatarsophalangeal joint proximally down the shaft of the metatarsal. It should be noted that a fifth metatarsophalangeal joint capsulotomy and arthrotomy was accomplished to evaluate the accuracy of the reduction. Fracture extends very distal into the neck of the fifth metatarsal. Again, the periosteum was cleared of healing callus using a combination of a curette and the small hand rongeur. The fracture site was identified and there was found to be comminution distally and medially. The comminution was first addressed with a #2 FiberWire in a cerclage type fashion after exposure of the fracture and debridement of the healing callus. Using the #2 FiberWire, open reduction and internal fixation of the comminuted fragment was accomplished. This having been accomplished now with traction, again viewing the metatarsophalangeal joint under direct vision with the cable splicer assistant placing longitudinal traction, arthrotomy of the fifth metatarsophalangeal joint and capsulotomy having been accomplished to evaluate the accuracy reduction, the T locking plate was trimmed to the appropriate number of locking holes. The plate was fashioned to contour to the metatarsal head and neck region without compromise of the fifth metatarsophalangeal joint. After open reduction and internal fixation of the distal fragment with the cerclage FiberWire, each sequential drill hole was drilled, sounded and the appropriate size screws placed. In the area of the comminution, one screw was left intentionally long. At this point in time, verification of position was offered on AP and lateral image intensification views. The position was found to be acceptable. At this point time, autograft and allograft bone graft was accomplished to the fracture site after thorough irrigation. Autograft was accomplished at the comminuted fracture site and allograft was 0.5 DBX allograft bone graft. This having been accomplished, the periosteum was closed with interrupted Vicryl. The capsulotomy was closed as well with interrupted Vicryl and nonabsorbable FiberWire. Capsulotomy having been repaired, metatarsophalangeal arthrotomy having been repaired, bone grafting having been accomplished, verification of position again was offered on AP and lateral image intensification views. One screw was about 2 to 3 mm long and was left that way intentionally in the area of the comminution to offer a better fixation closure of the skin in layers with interrupted Vicryl and nylon. The tourniquet was deflated. Hemostasis had been controlled. Kalen Thompson compression dressing and long-leg posterior splint were applied. The operative goal could not have been reached without the assistance of Lakesha Raphael and podiatry resident, [place]. No complications. No drains. The patient was stable in recovery. Adalid Duran MD
== END 2018-10-07 14:42 | disposition home or self-care (01) | DRG 505 ==
LOC: H.ER 17:57 → H.ERHOLD 21:58 → H.MEDSURG1 10-06 00:16
PROVIDERS: ADMIT Internal Medicine; ATTEND Internal Medicine
PROC: 0QUN07Z Supplement Right Metatarsal with Autologous Tissue Substitute, Open Approach (ICD-10-PCS; 2018-10-06)
PROC: 3E0T3BZ Introduction of Anesthetic Agent into Peripheral Nerves and Plexi, Percutaneous Approach (ICD-10-PCS; principal; 2018-10-06 12:45)
PROC: 0QSN04Z Reposition Right Metatarsal with Internal Fixation Device, Open Approach (ICD-10-PCS; 2018-10-06 12:45)
DX: S92.351A Displaced fracture of fifth metatarsal bone, right foot, initial encounter for closed fracture (principal); M54.40 Lumbago with sciatica, unspecified side; W10.8XXA Fall (on) (from) other stairs and steps, initial encounter; L84 Corns and callosities